=== PATIENT | female | born 1950 | race Caucasian/White ===

== ENCOUNTER 2018-05-26 10:20 | Emergency (ER) | payer OTHER ==
[~2018-05-26] VITALS: Ht 165.1 cm; Wt 87.5 kg
[~2018-05-26 10:20] MED LIST: ALBU90OI INH; ASPI81CH PO; Abilify5 MG PO; CARB200 PO; FAMO20 PO; GABA100 PO; LISI20 PO; METF500 PO; OMEPRAZOLE MAGN20 MG PO; Pravachol80 MG PO; VENL150ER PO
== END 2018-05-26 10:46 | disposition home or self-care (01) ==
LOC: ER 10:20
DX: S01.01XD Laceration without foreign body of scalp, subsequent encounter (principal); Z88.1 Allergy status to other antibiotic agents; Z79.899 Other long term (current) drug therapy; Z79.84 Long term (current) use of oral hypoglycemic drugs; Z79.82 Long term (current) use of aspirin; I10 Essential (primary) hypertension; E11.9 Type 2 diabetes mellitus without complications; Z87.891 Personal history of nicotine dependence
CPT/HCPCS: 82947; 99283

== ENCOUNTER 2018-12-09 18:11 | Observation (INO) | payer OTHER ==
[~2018-12-09] VITALS: Ht 165.1 cm; Wt 84.5 kg
[~2018-12-09 18:11] MED LIST changes: -GABA100 PO; +GABA300 PO
[2018-12-09 19:03] LABS: BASOPHILS ABSOLUTE AUTO 0.11 K/mm3 (0.00-0.23); BASOPHILS PERCENT AUTO 1 % (0-2); EOSINOPHILS ABSOLUTE AUTO 0.28 K/mm3 (0.00-0.68); EOSINOPHILS PERCENT AUTO 4 % (0-6); Hematocrit 39.3 % (33.0-51.0); Hemoglobin 12.6 g/dL (11.5-16.0); IMMATURE GRAN ABSOLUTE AUTO 0.03 K/mm3 (0.00-0.10); IMMATURE GRAN PERCENT AUTO 0 % (0-1); LYMPHOCYTES ABSOLUTE AUTO 3.42 K/mm3 (0.84-5.20); LYMPHOCYTES PERCENT AUTO 42 % (21-46); MONOCYTES ABSOLUTE AUTO 0.59 K/mm3 (0.16-1.47); MONOCYTES PERCENT AUTO 7 % (4-13); Mean Corpuscular HGB 30.4 pg (26.0-34.0); Mean Corpuscular HGB Conc 32.1 g/dL (31.5-36.5); Mean Corpuscular Volume 95 fL (80-100); Mean Platelet Volume 9.7 fL (9.1-12.4); NEUTROPHILS ABSOLUTE AUTO 3.63 K/mm3 (1.96-9.15); NEUTROPHILS PERCENT AUTO 45 % (41-73); Platelet Count 315 K/mm3 (150-400); RDW Standard Deviation 45.2 fL (35.1-46.3); Red Blood Cell Count 4.14 M/mm3 (3.80-5.20); White Blood Cell Count 8.06 K/mm3 (4.00-11.30)
[2018-12-09 19:27] LABS: Albumin/Globulin Ratio 1.1 (0.8-1.8); Bilirubin, Total 0.3 mg/dL (0.1-1.0); Bun/Creatinine Ratio 26.6 (12.0-20.0); Calcium, Blood 9.4 mg/dL (8.5-10.1); Creatinine, Blood 1.54 mg/dL (0.40-1.00); Globulin, Blood 3.8 g/dL (2.2-4.0); Potassium, Blood 5.1 mmol/L (3.5-5.5); Total Protein, Blood 7.8 g/dL (6.4-8.2)
[2018-12-09 19:38] LABS: Source, Urine Clean Catch
[2018-12-09 19:44] LABS: Bilirubin, Urine Neg (Neg); Blood, Urine Neg (Neg); Glucose Qualitative, Urine Neg (Neg); Ketones, Urine Neg (Neg); Leukocyte Esterase, Urine 1+ (Neg); Nitrite, Urine Neg (Neg); Protein, Urine 2+ (Neg); Urobilinogen, Urine NORM (Normal)
[2018-12-09 19:53] LABS: Appearance, Urine Cloudy (Clear); Color, Urine Yellow (P-Yellow)
[2018-12-09 19:54] LABS: Bacteria Many /hpf; Red Blood Cells, Urine 0-2 /hpf (0-2); Squamous Epithelial Cells Many /hpf (Few)
[2018-12-09] MEDS ORDERED: PANT40 PO (20:11)
[2018-12-09] MEDS ORDERED: CALTRATE 600 +1 EACH PO (20:12)
[2018-12-09 21:31] LABS: Bun/Creatinine Ratio 26.7 (12.0-20.0); Calcium, Blood 8.2 mg/dL (8.5-10.1); Creatinine, Blood 1.5 mg/dL (0.40-1.00); Potassium, Blood 5.6 mmol/L (3.5-5.5)
[2018-12-10] MEDS ORDERED: Amaryl1 MG PO (02:12)
--- NOTE | 2018-12-10 04:46 | NUR ---
SHIFT SUMMARY RECEIVED REPORT FROM NORAH MERCADO (ED). ARRIVED TO MEDICAL FLOOR VIA W/C. MINIMAL TRANSFER ASSISTANCE NEEDED. ORIENTED TO ROOM AND CALL SYSTEM. A/O, ABLE TO MAKE NEEDS KNOWN. COOPERATIVE WITH CARE. NO C/O PAIN/DISCOMFORT. ALSO NO COMPLAINTS OF NAUSEA AFTER ED MEDICATED WITH ZOFRAN. NO ACUTE CHANGES OVERNIGHT. BED IN LOWEST POSITION. CALL LIGHT AND BELONGINGS WITHIN REACH. WCTM. REPORT TO ONCOMING RN.
[2018-12-10 05:32] LABS: Bun/Creatinine Ratio 26.5 (12.0-20.0); Calcium, Blood 8.1 mg/dL (8.5-10.1); Creatinine, Blood 1.36 mg/dL (0.40-1.00)
--- NOTE | 2018-12-10 18:27 | NUR ---
SHIFT SUMMARY NO ACUTE CONCERNS. PATIENT INDEPENDENT IN THE ROOM. SHE IS FEELING BETTER AT THIS TIME. SHE NOTES THAT SHE IS TIRED AND GOT TO SLEEP A LOT TODAY. WILL ASSESS FOR ANY NEW CONCERNS.
--- NOTE | 2018-12-11 04:23 | NUR ---
SHIFT SUMMARY: 68 Y/O FEMALE RESTED COMFORTABLY ALL SHIFT, DENIES PAIN OR NAUSEA, VOIDING CLEAR YELLOW FLUID, ABLE WALK BATHROOM AND BACK WITHOUT ISSUE, HAPPY AND COOPERATIVE, BED LOW POSITION, CALL LIGHT AT SIDE.
[2018-12-11 05:23] LABS: Albumin, Blood 2.8 g/dL (3.4-5.0); Anion Gap 5 mmol/L (6-16); Blood Urea Nitrogen 23 mg/dL (8-24); Bun/Creatinine Ratio 20.4 (12.0-20.0); CO2, Blood 21 mmol/L (21-32); Calcium, Blood 7.9 mg/dL (8.5-10.1); Chloride, Blood 117 mmol/L (98-108); Creatinine, Blood 1.13 mg/dL (0.40-1.00); Glomerular Filtration Rate 51 (60-); Glucose, Blood 87 mg/dL (70-99); Phosphorus, Blood 3.2 mg/dL (2.5-4.9); Potassium, Blood 5.4 mmol/L (3.5-5.5); Sodium, Blood 143 mmol/L (136-145)
--- NOTE | 2018-12-11 12:52 | NUR ---
DISCHARGE SUMMARY PATIENTS IV REMOVED. PATIENT PLEASANT. ALL INFORMATION GIVEN TO THE PATIENT AND MEDICATION LIST UPDATED WITH THE PHARMACY. PATIENT WHEELED OUT.
== END 2018-12-11 12:00 | disposition home or self-care (01) ==
LOC: ER 18:11 → MEDS 18:12
PROVIDERS: Emergency Medicine; Internal Medicine; Physician Assistant; ADMIT Hospitalist
DX: N17.9 Acute kidney failure, unspecified (principal); E87.5 Hyperkalemia; E86.0 Dehydration; I10 Essential (primary) hypertension; E11.9 Type 2 diabetes mellitus without complications; K21.9 Gastro-esophageal reflux disease without esophagitis; E78.5 Hyperlipidemia, unspecified; F31.9 Bipolar disorder, unspecified; F43.10 Post-traumatic stress disorder, unspecified; Z87.891 Personal history of nicotine dependence; Z88.1 Allergy status to other antibiotic agents; Z79.899 Other long term (current) drug therapy; Z79.84 Long term (current) use of oral hypoglycemic drugs
CPT/HCPCS: 36415; 80048; 80053; 80069; 81001; 82947; 83036; 83690; 84484; 85025; 87086; 93005; 93010; 96361; 96374; 99285-25; G0378; J2405; J7030

== ENCOUNTER 2018-12-28 13:27 | Inpatient (IN) | payer OTHER ==
[~2018-12-28] VITALS: Ht 165.1 cm; Wt 87.1 kg
[~2018-12-28 13:27] MED LIST changes: +Amaryl1 MG PO; +CALTRATE 600 +1 EACH PO; +PANT40 PO
[2018-12-28 13:54] LABS: BASOPHILS ABSOLUTE AUTO 0.09 K/mm3 (0.00-0.23); BASOPHILS PERCENT AUTO 1 % (0-2); EOSINOPHILS ABSOLUTE AUTO 0.12 K/mm3 (0.00-0.68); EOSINOPHILS PERCENT AUTO 1 % (0-6); Hematocrit 34.2 % (33.0-51.0); Hemoglobin 11.2 g/dL (11.5-16.0); IMMATURE GRAN ABSOLUTE AUTO 0.06 K/mm3 (0.00-0.10); IMMATURE GRAN PERCENT AUTO 1 % (0-1); LYMPHOCYTES ABSOLUTE AUTO 1.27 K/mm3 (0.84-5.20); LYMPHOCYTES PERCENT AUTO 12 % (21-46); MONOCYTES ABSOLUTE AUTO 0.33 K/mm3 (0.16-1.47); MONOCYTES PERCENT AUTO 3 % (4-13); Mean Corpuscular HGB 30.9 pg (26.0-34.0); Mean Corpuscular HGB Conc 32.7 g/dL (31.5-36.5); Mean Corpuscular Volume 95 fL (80-100); Mean Platelet Volume 9.2 fL (9.1-12.4); NEUTROPHILS ABSOLUTE AUTO 8.71 K/mm3 (1.96-9.15); NEUTROPHILS PERCENT AUTO 82 % (41-73); Platelet Count 378 K/mm3 (150-400); RDW Coefficient Variation 13.2 % (11.7-14.2); RDW Standard Deviation 45.9 fL (35.1-46.3); Red Blood Cell Count 3.62 M/mm3 (3.80-5.20); White Blood Cell Count 10.58 K/mm3 (4.00-11.30)
[2018-12-28 14:25] LABS: Albumin, Blood 3.4 g/dL (3.4-5.0); Albumin/Globulin Ratio 0.9 (0.8-1.8); Bilirubin, Total 0.2 mg/dL (0.1-1.0); Bun/Creatinine Ratio 12.7 (12.0-20.0); Calcium, Blood 8.4 mg/dL (8.5-10.1); Creatinine, Blood 1.42 mg/dL (0.40-1.00); Globulin, Blood 3.6 g/dL (2.2-4.0); Potassium, Blood 4.7 mmol/L (3.5-5.5)
[2018-12-28 14:38] LABS: Troponin I 0.932 ng/mL (0.000-0.040)
[2018-12-28 15:14] LABS: International Normalized Ratio 0.94
[2018-12-28 15:35] LABS: Source, Urine Clean Catch
[2018-12-28 15:39] LABS: Blood, Urine Neg (Neg); Glucose Qualitative, Urine Neg (Neg); Ketones, Urine 1+ (Neg); Leukocyte Esterase, Urine 1+ (Neg); Nitrite, Urine Neg (Neg); Protein, Urine 2+ (Neg); Specific Gravity, Urine 1.025 (1.003-1.022); Urobilinogen, Urine 1+ (Normal)
[2018-12-28] MEDS ORDERED: FAMO20 PO (15:43)
[2018-12-28] MEDS ORDERED: ASCO500 PO (15:43)
[2018-12-28] MEDS ORDERED: CYAN500 PO (15:44)
[2018-12-28] MEDS ORDERED: Pedi-Dri 100,0060 GM TOP (15:45)
[2018-12-28 15:52] LABS: Appearance, Urine Clear (Clear); Bilirubin, Urine 2+ (Neg); Color, Urine Yellow (P-Yellow)
[2018-12-28 15:53] LABS: Bacteria Mod /hpf; Red Blood Cells, Urine 0-2 /hpf (0-2); Squamous Epithelial Cells Few /hpf (Few)
--- NOTE | 2018-12-28 16:25 | NUR ---
echocardiogram complete
--- NOTE | 2018-12-28 18:26 | NUR ---
PT ARRIVAL TO UNIT. PT ARRIVED ON UNIT VIA GURNEY. PT WAS ABLE TO SELF TRANSFER FROM THE GURNEY TO THE BED AND THEN THE BSC. PT IS SBA. PT C/O OF 8/10 CHEST PAIN, CARDIOLOGY PROVIDER AT THE BEDSIDE. STAT EKG WAS DONE, NO ST CHANGES NOTED. PT IS PALE AND DIAPHORETIC. PT WAS GIVEN SL NITRO, AFTER NITRO PT REPORTED 0/10 PAIN. PT IS TO BE NPO UNTIL ANGIO IN THE AM. VS STABLE AT THIS TIME. NO EDEMA NOTED ON ASSESSMENT. NO SKIN ISSUES NOTED. L/S CLEAR T/O DIM IN THE BASES. PT IS ON RA AT THIS TIME BUT HAS NC WITH 2L PRN CHEST PAIN. CALL LIGHT IN REACH, BED IS LOCKED AND LOW WILL CONTINUE TO MONITOR UNTIL REPORT IS GIVEN TO ONCOMING RN.
[2018-12-29 02:34] LABS: BASOPHILS ABSOLUTE AUTO 0.05 K/mm3 (0.00-0.23); BASOPHILS PERCENT AUTO 1 % (0-2); EOSINOPHILS ABSOLUTE AUTO 0.04 K/mm3 (0.00-0.68); EOSINOPHILS PERCENT AUTO 1 % (0-6); Hematocrit 29.9 % (33.0-51.0); Hemoglobin 9.8 g/dL (11.5-16.0); IMMATURE GRAN ABSOLUTE AUTO 0.04 K/mm3 (0.00-0.10); IMMATURE GRAN PERCENT AUTO 1 % (0-1); LYMPHOCYTES ABSOLUTE AUTO 2.02 K/mm3 (0.84-5.20); LYMPHOCYTES PERCENT AUTO 23 % (21-46); MONOCYTES ABSOLUTE AUTO 0.57 K/mm3 (0.16-1.47); MONOCYTES PERCENT AUTO 7 % (4-13); Mean Corpuscular HGB 30.4 pg (26.0-34.0); Mean Corpuscular HGB Conc 32.8 g/dL (31.5-36.5); Mean Corpuscular Volume 93 fL (80-100); Mean Platelet Volume 9.2 fL (9.1-12.4); NEUTROPHILS ABSOLUTE AUTO 5.94 K/mm3 (1.96-9.15); NEUTROPHILS PERCENT AUTO 69 % (41-73); Platelet Count 330 K/mm3 (150-400); RDW Coefficient Variation 13.7 % (11.7-14.2); RDW Standard Deviation 46.6 fL (35.1-46.3); Red Blood Cell Count 3.22 M/mm3 (3.80-5.20); White Blood Cell Count 8.66 K/mm3 (4.00-11.30)
[2018-12-29 02:57] LABS: Anion Gap 10 mmol/L (6-16); Blood Urea Nitrogen 22 mg/dL (8-24); Bun/Creatinine Ratio 13.7 (12.0-20.0); CO2, Blood 23 mmol/L (21-32); Calcium, Blood 8.1 mg/dL (8.5-10.1); Chloride, Blood 102 mmol/L (98-108); Cholesterol 147 mg/dL (50-200); Creatinine, Blood 1.61 mg/dL (0.40-1.00); Glomerular Filtration Rate 34 (60-); Glucose, Blood 261 mg/dL (70-99); HDL Cholesterol 75 mg/dL (>39); LDL/HDL RATIO 0.7; Low Density Lipoprotein Chol 50 mg/dL (0-110); Potassium, Blood 4.6 mmol/L (3.5-5.5); Sodium, Blood 135 mmol/L (136-145); Triglycerides 109 mg/dL (30-160); Very Low Density Lipoprot Chol 21 mg/dL (6-32)
--- NOTE | 2018-12-29 06:02 | NUR ---
Shift Summary VSS this shift, pt with 1 episode of nausea without vomiting, accompanied with 2/10 CP and diaphoresis at approx 2200 on 12/28 relieved with 2mg zofran per orders. Pt denies CP or pressure or SOB throughout the rest of the night. Pt able to sleep on and off this shift, breathing easy and unlabored, ambulates to BSC with SBA without CP/pressure/SOB. Pt does c/o mild positional lightheadedness which resolves if pt changes slowly. Pt follows directions, remains alert and oriented, calls appropriately. Pt has been NPO since shift change at 1900 on 12/28 for anticipated angio this AM. EKG completed per orders this AM. No further changes from initial shift assessment. Pt is in no apparent sign of distress, breathing easy and unlabored on RA. Currently, pt is resting with eyes closed in bed. Will continue to monitor and update as needed until day RN assumes care.
--- NOTE | 2018-12-29 08:18 | NUR ---
AM NOTE. ASSUMED CARE OF PT APROX 0700, PT IS A&Ox4 AND SBA IN THE ROOM. PT IS NPO AND WAITING TO BE TAKEN TO THE BELL ATTENDANT. PT STATES SHE HAS 2/10 CHEST PAIN BUT IT IS TOLERABLE. PT'S VS STABLE AT THIS TIME. NO EVENTS NOTED ON TELE OR ST CHANGES. HEPARING GTT RUNNING AT ORDERED RATE. WILL CONTINUE TO MONITOR.
--- NOTE | 2018-12-29 10:55 | NUR ---
Patient is lying in bed and resting but easily awakens to the sound of her name. Patient reherses the events that led to her hospitalization and the plan of care which includes an angiogram scheduled for noon today. Patient admitted to being quite nervous about the upcoming procedure. I conducted a life review and explored patient's alevism background (patient is pentacostal and attends [employer] in [place]). I provided a calming presence and provided presurgical prayer, Patient responded well and displayed evidence of reduced stress.
--- NOTE | 2018-12-29 18:42 | NUR ---
SHIFT SUMMARY. PT WAS TAKEN TO COURT SECURITY OFFICER APROX 1230, PT RETURNED FROM COURT SECURITY OFFICER APROX 1330. PT'S VS STABLE, PT HAS RIGHT WRIST SITE WITH TR BAND. SITE IS C/D/I, NO SWELLING, REDNESS OR HEMATOMA NOTED. PT DENIES ANY PAIN/NUMBNESS/TINGLING TO THE RIGHT HAND, GOOD CAP REFIL NOTED TO THE FINGERS OF THE RIGHT HAND. PT'S VS STABLE. PT DENIES ANY CHEST PAIN/PRESSURE. HEPARIN GTT WAS STOPPED BY COURT SECURITY OFFICER STAFF. PT'S VS STABLE T/O SHIFT. CALL LIGHT IN REACH, BED IS LOCKED AND LOW WILL CONTINUE TO MONITOR UNTIL REPORT IS GIVEN TO ONCOMING RN.
--- NOTE | 2018-12-29 22:41 | NUR ---
Assumed care of pt at approx 191. Visualized access site with day nurse NORHA Esteban. Site clear from bleed, hematoma, tenderness. Pt fully recovered at 2144. Pt breathing easy, unlabored, o2 stable on RA. See shift assessment for detailed systems assessmnet. Pt c/o chest pain 2/10 pain, exacerbated by movement and breathing, resolved with relaxation and reposition. Pt denies SOB, chest pressure, diaphoresis. Pt currently sleeping, call light in reach, able to make needs known. Will continue monitoring and updating as needed.
[2018-12-30 04:26] LABS: BASOPHILS ABSOLUTE AUTO 0.07 K/mm3 (0.00-0.23); BASOPHILS PERCENT AUTO 1 % (0-2); EOSINOPHILS ABSOLUTE AUTO 0.19 K/mm3 (0.00-0.68); EOSINOPHILS PERCENT AUTO 2 % (0-6); Hematocrit 29.8 % (33.0-51.0); Hemoglobin 9.8 g/dL (11.5-16.0); IMMATURE GRAN ABSOLUTE AUTO 0.04 K/mm3 (0.00-0.10); IMMATURE GRAN PERCENT AUTO 1 % (0-1); LYMPHOCYTES ABSOLUTE AUTO 3.11 K/mm3 (0.84-5.20); LYMPHOCYTES PERCENT AUTO 37 % (21-46); MONOCYTES ABSOLUTE AUTO 0.83 K/mm3 (0.16-1.47); MONOCYTES PERCENT AUTO 10 % (4-13); Mean Corpuscular HGB 30.6 pg (26.0-34.0); Mean Corpuscular HGB Conc 32.9 g/dL (31.5-36.5); Mean Corpuscular Volume 93 fL (80-100); Mean Platelet Volume 9.2 fL (9.1-12.4); NEUTROPHILS ABSOLUTE AUTO 4.16 K/mm3 (1.96-9.15); NEUTROPHILS PERCENT AUTO 50 % (41-73); Platelet Count 267 K/mm3 (150-400); RDW Coefficient Variation 13.6 % (11.7-14.2)
[2018-12-30 04:44] LABS: Bun/Creatinine Ratio 17.7 (12.0-20.0); Calcium, Blood 8.3 mg/dL (8.5-10.1); Creatinine, Blood 1.47 mg/dL (0.40-1.00); Potassium, Blood 4.4 mmol/L (3.5-5.5)
--- NOTE | 2018-12-30 05:31 | NUR ---
Shift Summary No acute changes this shift. VSS. No events on tele. Pt denies chest pain or chest pressure. Pt denies SOB. Breathing easy, even, and unlabored on RA. Pt able to ambulate to bathroom with minimal assistance. R Radial access site fully recovered, TR band removed, transparent dressing placed and no bleed, hematoma, or redness noted. Pt compliant with r arm restriction. BROWN, uses call light appropriately, able to make needs known. No acute changes from initial shift assessment. Will continue monitoring and providing care until Day RN assumes care.
[2018-12-30] MEDS ORDERED: ASPI81CH PO (15:14)
[2018-12-30] MEDS ORDERED: CARV3.125 PO (15:15)
[2018-12-30] MEDS ORDERED: CLOP75 PO (15:15)
--- NOTE | 2018-12-30 16:30 | NUR ---
ORDERS FOR DISCHARGE. PT EDUCATED ON DISCHARGE ISNTRUCTIONS. NEW MEDICATION REGIMEN PROVIDED AND EXPLAINED. ALL QUESTIONS ANSWERED. PT PROVIDED RIDE VIA [employer]. PT TAKEN OUT BY WHEELCHAIR.
== END 2018-12-30 16:31 | disposition home or self-care (01) | DRG 281 ==
LOC: ER 13:27 → PCU 15:33
PROVIDERS: Emergency Medicine; Internal Medicine Cardiovascular Disease; ADMIT Hospitalist
PROC: B2111ZZ Fluoroscopy of Multiple Coronary Arteries using Low Osmolar Contrast (ICD-10-PCS; principal; 2018-12-29)
DX: I21.A1 Myocardial infarction type 2 (principal); I51.81 Takotsubo syndrome; Z79.84 Long term (current) use of oral hypoglycemic drugs; E78.5 Hyperlipidemia, unspecified; K21.9 Gastro-esophageal reflux disease without esophagitis; F41.8 Other specified anxiety disorders; E66.9 Obesity, unspecified; Z68.31 Body mass index [BMI] 31.0-31.9, adult; Z87.891 Personal history of nicotine dependence; E11.22 Type 2 diabetes mellitus with diabetic chronic kidney disease; I12.9 Hypertensive chronic kidney disease with stage 1 through stage 4 chronic kidney disease, or unspecified chronic kidney disease; N18.9 Chronic kidney disease, unspecified
CPT/HCPCS: 36415; 71046; 80048; 80053; 80061; 81001; 82947; 84443; 84484; 85025; 85610; 85730; 87086; 93005; 93010; 93306; 93454; 96361; 96365-59; 96375-59; 99152; 99285-25; A9270; A9270-GY; C1769; C1894; J0696; J1644; J1940; J2250; J2405; J2550; J3010; J7030; J7040; Q9967

== ENCOUNTER → 2019-02-28 | Outpatient (CLI) | payer OTHER ==
[~2019-02-28] MED LIST changes: +ASCO500 PO; +CARV3.125 PO; +CLOP75 PO; +CYAN500 PO; +Pedi-Dri 100,0060 GM TOP
[2019-02-28 10:20] LABS: BASOPHILS ABSOLUTE AUTO 0.08 K/mm3 (0.00-0.23); BASOPHILS PERCENT AUTO 1 % (0-2); EOSINOPHILS ABSOLUTE AUTO 0.39 K/mm3 (0.00-0.68); EOSINOPHILS PERCENT AUTO 6 % (0-6); Hematocrit 34.7 % (33.0-51.0); Hemoglobin 11.7 g/dL (11.5-16.0); IMMATURE GRAN ABSOLUTE AUTO 0.02 K/mm3 (0.00-0.10); IMMATURE GRAN PERCENT AUTO 0 % (0-1); LYMPHOCYTES ABSOLUTE AUTO 1.92 K/mm3 (0.84-5.20); LYMPHOCYTES PERCENT AUTO 32 % (21-46); MONOCYTES ABSOLUTE AUTO 0.51 K/mm3 (0.16-1.47); MONOCYTES PERCENT AUTO 8 % (4-13); Mean Corpuscular HGB 30.7 pg (26.0-34.0); Mean Corpuscular HGB Conc 33.7 g/dL (31.5-36.5); Mean Corpuscular Volume 91 fL (80-100); Mean Platelet Volume 8.5 fL (9.1-12.4); NEUTROPHILS ABSOLUTE AUTO 3.16 K/mm3 (1.96-9.15); NEUTROPHILS PERCENT AUTO 52 % (41-73); Platelet Count 324 K/mm3 (150-400); RDW Coefficient Variation 12.6 % (11.7-14.2); RDW Standard Deviation 41.4 fL (35.1-46.3); Red Blood Cell Count 3.81 M/mm3 (3.80-5.20); White Blood Cell Count 6.08 K/mm3 (4.00-11.30)
[2019-02-28 10:25] LABS: Bun/Creatinine Ratio 16.5 (12.0-20.0); Creatinine, Blood 1.21 mg/dL (0.40-1.00); Potassium, Blood 5.3 mmol/L (3.5-5.5)
== END | disposition home or self-care (01) ==
LOC: LAB EV 10:16 → LAB SHORT 10:16
PROVIDERS: Family Medicine
DX: E11.3299 Type 2 diabetes mellitus with mild nonproliferative diabetic retinopathy without macular edema, unspecified eye (principal); N39.0 Urinary tract infection, site not specified
CPT/HCPCS: 80048; 85025; 87077; 87086; 87186

== ENCOUNTER → 2019-03-15 | Outpatient (CLI) | payer OTHER ==
[2019-03-15 19:30] LABS: Bilirubin, Urine Neg (Neg); Blood, Urine Neg (Neg); Glucose Qualitative, Urine Neg (Neg); Ketones, Urine Neg (Neg); Leukocyte Esterase, Urine Neg (Neg); Nitrite, Urine Neg (Neg); Protein, Urine Neg (Neg); Urobilinogen, Urine NORM (Normal)
[2019-03-15 19:36] LABS: Appearance, Urine Clear (Clear); Color, Urine Yellow (P-Yellow)
[2019-03-15 20:18] LABS: Creatinine, Urine Random 58.9 mg/dL (27.00-270.00); Protein, Urine Random 21.7 mg/dL (0.0-11.9)
== END | disposition home or self-care (01) ==
LOC: LAB 16:40 → LAB SHORT 16:40
PROVIDERS: Internal Medicine
DX: N18.3 Chronic kidney disease, stage 3 (moderate) (principal)
CPT/HCPCS: 81003; 82570; 84156

== ENCOUNTER → 2019-06-03 | Outpatient (CLI) | payer OTHER ==
[2019-06-06 06:16] LABS: Stool Occult Bld Immuno 1 Negative (NEGATIVE)
== END ==
LOC: LAB SHORT 05:00 → LAB 05:00
PROVIDERS: Nurse Practitioner Family
DX: Z12.11 Encounter for screening for malignant neoplasm of colon (principal)
CPT/HCPCS: G0328

== ENCOUNTER → 2019-07-10 | Outpatient (CLI) | payer OTHER ==
[2019-07-10 10:40] LABS: Source, Urine Clean Catch
[2019-07-10 12:31] LABS: Bilirubin, Urine Neg (Neg); Blood, Urine Neg (Neg); Glucose Qualitative, Urine Neg (Neg); Ketones, Urine Neg (Neg); Leukocyte Esterase, Urine Neg (Neg); Nitrite, Urine Pos (Neg); Protein, Urine Neg (Neg); Urobilinogen, Urine NORM (Normal)
[2019-07-10 12:49] LABS: Appearance, Urine Clear (Clear); Color, Urine Yellow (P-Yellow)
[2019-07-10 12:54] LABS: Bacteria Many /hpf; Red Blood Cells, Urine 0-2 /hpf (0-2); Squamous Epithelial Cells Few /hpf (Few)
[2019-07-10 13:01] LABS: Creatinine, Urine Random 52.7 mg/dL (27.00-270.00); Protein, Urine Random 24.6 mg/dL (0.0-11.9)
== END | disposition home or self-care (01) ==
LOC: LAB SHORT 10:37 → LAB 10:37
PROVIDERS: Internal Medicine
DX: N18.3 Chronic kidney disease, stage 3 (moderate) (principal)
CPT/HCPCS: 81001; 82570; 84156

== ENCOUNTER → 2019-07-11 | Outpatient (CLI) | payer OTHER | END | disposition home or self-care (01) | LOC: LAB 11:17 → LAB SHORT 11:17 | DX: N18.3 Chronic kidney disease, stage 3 (moderate) (principal) | CPT/HCPCS: 83935 ==

== ENCOUNTER → 2020-02-27 | Outpatient (CLI) | payer OTHER ==
[2020-02-27 12:28] LABS: Albumin, Blood 3.8 g/dL (3.4-5.0); Bilirubin, Total 0.5 mg/dL (0.1-1.0); Bun/Creatinine Ratio 21.9 (12.0-20.0); Calcium, Blood 9.1 mg/dL (8.5-10.1); Creatinine, Blood 1.14 mg/dL (0.40-1.00); Potassium, Blood 5.3 mmol/L (3.5-5.5); Total Protein, Blood 7.8 g/dL (6.4-8.2)
== END ==
LOC: LAB SHORT 12:08 → LAB 12:08
PROVIDERS: Nurse Practitioner Family
DX: E87.1 Hypo-osmolality and hyponatremia (principal)
CPT/HCPCS: 80053

== ENCOUNTER 2020-12-24 15:49 | Observation (INO) | payer OTHER ==
[~2020-12-24] VITALS: Ht 165.1 cm; Wt 93.9 kg
[~2020-12-24 15:49] MED LIST changes: +ABILIFY MYCITE5 M2 PO; -Abilify5 MG PO; +Aspir 8181 MG PO; -CALTRATE 600 +1 EACH PO; +Calcium + Vita1 EACH PO
[2020-12-24 16:17] LABS: BASOPHILS ABSOLUTE AUTO 0.07 K/mm3 (0.00-0.23); BASOPHILS PERCENT AUTO 1 % (0-2); EOSINOPHILS ABSOLUTE AUTO 0.39 K/mm3 (0.00-0.68); EOSINOPHILS PERCENT AUTO 6 % (0-6); Hematocrit 36.2 % (33.0-51.0); IMMATURE GRAN ABSOLUTE AUTO 0.03 K/mm3 (0.00-0.10); IMMATURE GRAN PERCENT AUTO 0 % (0-1); LYMPHOCYTES ABSOLUTE AUTO 2.87 K/mm3 (0.84-5.20); LYMPHOCYTES PERCENT AUTO 40 % (21-46); MONOCYTES ABSOLUTE AUTO 0.65 K/mm3 (0.16-1.47); MONOCYTES PERCENT AUTO 9 % (4-13); Mean Corpuscular HGB 31.8 pg (26.0-34.0); Mean Corpuscular HGB Conc 33.1 g/dL (31.5-36.5); Mean Corpuscular Volume 96 fL (80-100); Mean Platelet Volume 9.4 fL (9.1-12.4); NEUTROPHILS ABSOLUTE AUTO 3.12 K/mm3 (1.96-9.15); NEUTROPHILS PERCENT AUTO 44 % (41-73); Platelet Count 282 K/mm3 (150-400); RDW Coefficient Variation 12.4 % (11.7-14.2); RDW Standard Deviation 43.4 fL (35.1-46.3); Red Blood Cell Count 3.77 M/mm3 (3.80-5.20); White Blood Cell Count 7.13 K/mm3 (4.00-11.30)
[2020-12-24 16:44] LABS: Alanine Aminotransfer (ALT/SGP 27 U/L (12-78); Albumin, Blood 3.2 g/dL (3.4-5.0); Albumin/Globulin Ratio 0.9 (0.8-1.8); Alk Phos 142 U/L (50-136); Anion Gap 8 mmol/L (6-16); Aspartate Aminotrans (AST/SGOT 23 U/L (12-37); Bilirubin, Total 0.2 mg/dL (0.1-1.0); Blood Urea Nitrogen 20 mg/dL (8-24); Bun/Creatinine Ratio 20.7 (12.0-20.0); CO2, Blood 23 mmol/L (21-32); Calcium, Blood 8.9 mg/dL (8.5-10.1); Chloride, Blood 107 mmol/L (98-108); Creatinine, Blood 0.97 mg/dL (0.40-1.00); Globulin, Blood 3.6 g/dL (2.2-4.0); Glomerular Filtration Rate 57 (60-); Glucose, Blood 238 mg/dL (70-99); Potassium, Blood 4.7 mmol/L (3.5-5.5); Sodium, Blood 138 mmol/L (136-145); Total Protein, Blood 6.8 g/dL (6.4-8.2); Troponin I <0.015 ng/mL (0.000-0.040)
[2020-12-24] MEDS ORDERED: METFORMIN HCL1000 M8 PO (18:26)
[2020-12-24] MEDS ORDERED: ENTRESTO 24 MG1 EAC3 PO (18:26)
[2020-12-24] MEDS ORDERED: INVOKANA300 MG PO (18:40)
--- NOTE | 2020-12-24 22:37 | NUR ---
ADMITTED 70 YR OLD FEMALE WITH DX OF CHEST PAIN FROM THE ED. ED RN REPORTED CAME IN WITH CHEST PAIN, RECEIVED NITRO PER EMS AND THEY ADMINISTERED ASA. PT DENIES CP AT THIS TIME. ORIENTED X4, ORIENTED TO USE OF CALL LIGHT, CALL LIGHT IN REACH. UP AD STORMY. AGREES TO CALL IF VERTIGO OR CP, ETC. RAILS UP X 3
--- NOTE | 2020-12-25 03:46 | NUR ---
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 HAS DENIED ANY CHEST PAIN SINCE ADMISSION TO FLOOR. CALL LIGHT IN REACH. ALTHOUGH ELEVATED BP, NO NOTED ACUTE DISTRESS. RAILS UP X 3
--- NOTE | 2020-12-25 14:16 | NUR ---
Echocardiogram completed.
--- NOTE | 2020-12-25 16:51 | NUR ---
SHIFT SUMMARY PATIENT DENIES PAIN, NAUSEA, AND SHORTNESS OF BREATH. NO CHEST PAIN THIS SHIFT. UP INDEPENDENT IN ROOM. PART ONE OF TWO DAY STRESS TEST COMPLETED. TELE SHOWING NSR PER OIL WELL SHOOTER. EATING AND DRINKING WELL. PLEASANT AND COOPERATIVE WITH CARE.
--- NOTE | 2020-12-26 05:02 | NUR ---
SHIFT SUMMARY: PT IS ALERT AND ORIENTED. PT IS CALM AND COOPERATIVE WITH CARE. PT IS INDEPENDENT IN THE ROOM. PT CALLS APPROPRIATELY. PT DENIES PAIN, NAUSEA, VOMITING, AND SOB. PT SLEPT MUCH OF THE NIGHT WHEN NOT DISTURBED. NPO AFTER MIDNIGHT FOR SECOND PART OF STRESS TEST. NO ACUTE CHANGES OR COMPLICATIONS THIS SHIFT. BED IN LOW POSITION, CALL LIGHT WITHIN REACH. WILL CONTINUE TO MONITOR.
[2020-12-26 05:12] LABS: Hemoglobin 12.6 g/dL (11.5-16.0); Mean Corpuscular HGB 31.4 pg (26.0-34.0); Mean Corpuscular HGB Conc 32.3 g/dL (31.5-36.5); Mean Corpuscular Volume 97 fL (80-100); Mean Platelet Volume 9.6 fL (9.1-12.4); Platelet Count 272 K/mm3 (150-400); RDW Coefficient Variation 12.2 % (11.7-14.2); RDW Standard Deviation 43.8 fL (35.1-46.3); Red Blood Cell Count 4.01 M/mm3 (3.80-5.20)
[2020-12-26 05:40] LABS: Anion Gap 7 mmol/L (6-16); Blood Urea Nitrogen 22 mg/dL (8-24); Bun/Creatinine Ratio 21.2 (12.0-20.0); CO2, Blood 26 mmol/L (21-32); Calcium, Blood 9.4 mg/dL (8.5-10.1); Chloride, Blood 106 mmol/L (98-108); Creatinine, Blood 1.04 mg/dL (0.40-1.00); Glomerular Filtration Rate 52 (60-); Glucose, Blood 178 mg/dL (70-99); Potassium, Blood 4.6 mmol/L (3.5-5.5); Sodium, Blood 139 mmol/L (136-145); Troponin I <0.015 ng/mL (0.000-0.040)
--- NOTE | 2020-12-26 16:25 | NUR ---
DISCHARGED TO HOME WITH FRIEND, REVIEWED care provided, medication given, appointments to be kept and discharge instructions to be followed, Removed IV and tele, no noticable negative side effects, pt was wheeled to waiting car by staff
== END 2020-12-26 15:40 | disposition home or self-care (01) ==
LOC: ER 15:49 → MEDS 15:50 → ENPENDDIS 12-26 10:32 → MEDS 12-26 15:40
PROVIDERS: Emergency Medicine; Family Medicine; ADMIT Internal Medicine
DX: R07.2 Precordial pain (principal); I10 Essential (primary) hypertension; E11.9 Type 2 diabetes mellitus without complications; F31.9 Bipolar disorder, unspecified; I25.10 Atherosclerotic heart disease of native coronary artery without angina pectoris; E78.5 Hyperlipidemia, unspecified; E66.9 Obesity, unspecified; Z68.34 Body mass index [BMI] 34.0-34.9, adult; Z87.891 Personal history of nicotine dependence; Z88.1 Allergy status to other antibiotic agents; Z86.79 Personal history of other diseases of the circulatory system; Z82.49 Family history of ischemic heart disease and other diseases of the circulatory system
CPT/HCPCS: 36415; 71045; 78452; 80048; 80053; 82947; 83735; 83880; 84484; 85025; 85027; 93005; 93010; 93017; 93306; 96372; 99285-25; A9270; A9500; G0378; J0280; J1650; J1815; J2785

== ENCOUNTER 2022-07-18 04:48 | Emergency (ER) | payer OTHER ==
[~2022-07-18] VITALS: Ht 165.1 cm; Wt 95.2 kg
[~2022-07-18 04:48] MED LIST changes: +ENTRESTO 24 MG1 EAC3 PO; +INVOKANA300 MG PO; +METFORMIN HCL1000 M8 PO
[2022-07-18 05:35] LABS: BASOPHILS PERCENT AUTO 1 % (0-2); EOSINOPHILS ABSOLUTE AUTO 0.56 K/mm3 (0.00-0.68); EOSINOPHILS PERCENT AUTO 6 % (0-6); Hematocrit 32.3 % (33.0-51.0); Hemoglobin 11.3 g/dL (11.5-16.0); IMMATURE GRAN ABSOLUTE AUTO 0.04 K/mm3 (0.00-0.10); IMMATURE GRAN PERCENT AUTO 1 % (0-1); LYMPHOCYTES ABSOLUTE AUTO 2.11 K/mm3 (0.84-5.20); LYMPHOCYTES PERCENT AUTO 24 % (21-46); MONOCYTES ABSOLUTE AUTO 0.66 K/mm3 (0.16-1.47); MONOCYTES PERCENT AUTO 8 % (4-13); Mean Corpuscular HGB 31.4 pg (26.0-34.0); Mean Corpuscular Volume 90 fL (80-100); Mean Platelet Volume 8.6 fL (9.1-12.4); NEUTROPHILS ABSOLUTE AUTO 5.26 K/mm3 (1.96-9.15); NEUTROPHILS PERCENT AUTO 60 % (41-73); Platelet Count 283 K/mm3 (150-400); RDW Coefficient Variation 11.9 % (11.7-14.2); White Blood Cell Count 8.73 K/mm3 (4.00-11.30)
[2022-07-18 06:04] LABS: Magnesium, Blood 1.6 mg/dL (1.6-2.4)
[2022-07-18 06:08] LABS: Albumin, Blood 3.3 g/dL (3.4-5.0); Bilirubin, Total 0.4 mg/dL (0.1-1.0); Bun/Creatinine Ratio 15.7 (12.0-20.0); Calcium, Blood 8.8 mg/dL (8.5-10.1); Creatinine, Blood 0.89 mg/dL (0.40-1.00); Globulin, Blood 3.2 g/dL (2.2-4.0); Potassium, Blood 4.7 mmol/L (3.5-5.5); Thyroid Stimulating Hormone 3.28 uIU/mL (0.360-4.800); Total Protein, Blood 6.5 g/dL (6.4-8.2)
[2022-07-18 06:20] LABS: Influenza A, PCR NEGATIVE (NEGATIVE); Influenza B, PCR NEGATIVE (NEGATIVE); Resp Syncytial Virus, PCR NEGATIVE (NEGATIVE); SARS-Cov-2 (COVID-19) PCR, MMC NEGATIVE (NEGATIVE)
[2022-07-18 09:06] LABS: Source, Urine Clean Catch
[2022-07-18 09:27] LABS: Bilirubin, Urine Neg (Neg); Blood, Urine Neg (Neg); Glucose Qualitative, Urine 4+ (Neg); Ketones, Urine Neg (Neg); Leukocyte Esterase, Urine 1+ (Neg); Nitrite, Urine Pos (Neg); Protein, Urine 1+ (Neg); Urobilinogen, Urine NORM (Normal)
[2022-07-18 09:38] LABS: Appearance, Urine Hazy (Clear); Color, Urine Pale Yellow (P-Yellow)
[2022-07-18 09:40] LABS: Bacteria Many /hpf; Red Blood Cells, Urine 0-2 /hpf (0-2); Squamous Epithelial Cells Few /hpf (Few)
[2022-07-18] MEDS ORDERED: ONDA4ODT MM (10:43)
[2022-07-18] MEDS ORDERED: AMOCLA875 PO (10:43)
== END 2022-07-18 11:23 | disposition home or self-care (01) ==
LOC: ER 04:48
PROVIDERS: Student in an Organized Health Care Education/Training Program
DX: R42 Dizziness and giddiness (principal); I10 Essential (primary) hypertension; E11.9 Type 2 diabetes mellitus without complications; E87.1 Hypo-osmolality and hyponatremia; M54.6 Pain in thoracic spine; W19.XXXA Unspecified fall, initial encounter; Z88.8 Allergy status to other drugs, medicaments and biological substances; Z79.899 Other long term (current) drug therapy; Z79.82 Long term (current) use of aspirin; Z79.84 Long term (current) use of oral hypoglycemic drugs; Z87.891 Personal history of nicotine dependence; Z20.822 Contact with and (suspected) exposure to COVID-19
CPT/HCPCS: 0241U; 72070; 72128; 80053; 81001; 83735; 83880; 84443; 84484; 85025; 87077; 87086; 87186; 93005; 93010; A9270; J7030

== ENCOUNTER → 2023-11-29 | Outpatient (CLI) | payer OTHER ==
[~2023-11-29] MED LIST changes: +AMOCLA875 PO; +ONDA4ODT MM
[2023-11-29 17:27] LABS: Microalb/Creat Ratio UR, Rand 13.7 mg/g (0.000-30.000); Microalbumin, Random Urine 27.4 mg/L (0.000-20.000)
== END | disposition home or self-care (01) ==
LOC: LAB SHORT 13:43 → LAB 13:43
PROVIDERS: Hospitalist
DX: I12.9 Hypertensive chronic kidney disease with stage 1 through stage 4 chronic kidney disease, or unspecified chronic kidney disease (principal); N18.32 Chronic kidney disease, stage 3b
CPT/HCPCS: 82043; 82570

== ENCOUNTER → 2024-09-13 | Outpatient (CLI) | payer OTHER ==
[2024-09-13 18:01] LABS: Creatinine, Urine Random 47.9 mg/dL (27.00-270.00); Microalb/Creat Ratio UR, Rand 76.2 mg/g (0.000-30.000); Microalbumin, Random Urine 36.5 mg/L (0.000-20.000)
== END | disposition home or self-care (01) ==
LOC: LAB 09:15 → LAB SHORT 09:15
PROVIDERS: Hospitalist
DX: I12.9 Hypertensive chronic kidney disease with stage 1 through stage 4 chronic kidney disease, or unspecified chronic kidney disease (principal); E11.22 Type 2 diabetes mellitus with diabetic chronic kidney disease; N18.32 Chronic kidney disease, stage 3b
CPT/HCPCS: 82043; 82570